=== PATIENT | male | born 1935 | race Caucasian/White ===

== ENCOUNTER 2018-02-02 12:26 | Outpatient (CLI) | payer MEDICARE, OTHER ==
[2018-02-04 15:22] LABS: ANA SCREEN NEGATIVE (NEGATIVE)
== END 2018-02-02 12:27 | disposition home or self-care (01) ==
LOC: LAB 12:26
PROVIDERS: ATTEND Physician Assistant Medical
DX: M06.9 Rheumatoid arthritis, unspecified (principal)
CPT/HCPCS: 36415; 81599; 86038; 86235

== ENCOUNTER 2018-11-10 23:01 | Emergency (ER) | payer MEDICARE, OTHER ==
[2018-11-11] MEDS ORDERED: TETANUS/DIPHTHERIA/PERTUSSIS 0.5 ML SYRINGE IM ONE (02:08)
[2018-11-11] MEDS ORDERED: BACITRACIN OINT TOP STA ×2 (02:56→04:06)
[2018-11-11] MEDS ORDERED: BACITRACIN OINT TOP ONE (02:59)
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
[2018-11-11 04:14] VITALS: BP 129/80
== END 2018-11-11 04:16 | disposition home or self-care (01) ==
LOC: ED 23:01
DX: S40.811A Abrasion of right upper arm, initial encounter (principal); W20.8XXA Other cause of strike by thrown, projected or falling object, initial encounter; Y93.89 Activity, other specified; Y92.009 Unspecified place in unspecified non-institutional (private) residence as the place of occurrence of the external cause
CPT/HCPCS: 90471; 99282; 99283

== ENCOUNTER 2020-04-18 07:46 | Outpatient (CLI) | payer MEDICARE, OTHER | END 2020-04-18 07:47 | disposition home or self-care (01) | LOC: DI 07:46 | PROVIDERS: ATTEND Internal Medicine | DX: I51.7 Cardiomegaly (principal); I77.810 Thoracic aortic ectasia | CPT/HCPCS: 93306 ==

== ENCOUNTER 2020-06-13 10:51 | Outpatient (CLI) | payer MEDICARE, OTHER | END 2020-06-13 10:52 | disposition home or self-care (01) | LOC: COV 10:51 | PROVIDERS: ATTEND Family Medicine | DX: Z11.59 Encounter for screening for other viral diseases (principal); Z20.828 Contact with and (suspected) exposure to other viral communicable diseases ==

== ENCOUNTER 2021-02-16 16:32 | Outpatient (CLI) | payer MEDICARE | END 2021-02-16 16:33 | disposition critical access hospital (66) | LOC: EMS 16:32 | PROVIDERS: ATTEND Emergency Medicine | DX: M54.5 Low back pain (principal); R07.89 Other chest pain | CPT/HCPCS: A0425; A0429 ==

== ENCOUNTER 2021-02-16 17:06 | Emergency (ER) | payer MEDICARE, OTHER ==
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
--- NOTE | 2021-02-16 18:37 | XRAY Report ---
PROCEDURE: Chest 2 View X-Ray INDICATIONS: fall TECHNIQUE: 2 view(s) of the chest. COMPARISON: None. FINDINGS: Surgical changes and devices: None. Lungs and pleura: No pleural effusions or pneumothorax. Linear right basilar opacities are present. Mediastinum: Mediastinal contours are normal. Heart size is normal. Bones and chest wall: No suspicious bony abnormalities. Soft tissues appear unremarkable. Ribs are poorly evaluated. There is an appearance of what appears to be old left rib fractures. IMPRESSION: Linear opacities within the right base suggestive atelectasis. Ribs are poorly evaluated on there appears to be old left rib fractures. If acute fractures are concern, rib series is recomme nded. Reviewed by: Ashia Martinez MD on 02/16/2021 6:35 PM PDT Approved by: Ashia Martinez MD on 02/16/2021 6:35 PM PDT Station ID: [id number]
--- NOTE | 2021-02-16 19:58 | CT Report ---
PROCEDURE: THORACIC SPINE WO INDICATIONS: fall; r/o fx TECHNIQUE: Noncontrast 3 mm thick sections acquired through the region of interest in the thoracic spine. Sagit darian and coronal reformats were then constructed. For radiation dose reduction, the following was used : automated exposure control, adjustment of mA and/or kV according to patient size. COMPARISON: X-ray lumbar spine 02/16/2021 FINDINGS: Image quality: Excellent. Bones: There is normal overall bony alignment. 61% compression deformity is present at T3. In addit ion, there is an approximate 64% compression deformity at L1. Multilevel degenerative changes are pre sent. No suspicious sclerotic or lytic bony lesions. Central spinal canal is of normal overall calib er. Soft tissues: No paravertebral masses or hematomas. Visualized posteromedial lungs appear clear. P artially visualized low-attenuation focus is present at the lateral aspect of the superior left renal pole suggestive of a large cyst. Similar smaller appearance is noted on the right kidney. Bilateral nonobstructing renal calculi are present. IMPRESSION: 1. 61% compression deformity at T3 as well 64% compression deformity at L1. No prior exams are availa ble for comparison. Fracture at T3 appears acute while the L1 compression deformity is somewhat more indeterminate in appearance regarding chronicity. Reviewed by: Ashia Martinez MD on 02/16/2021 7:57 PM PDT Approved by: Ashia Martinez MD on 02/16/2021 7:57 PM PDT Station ID: [id number]
--- NOTE | 2021-02-16 19:59 | CT Report ---
PROCEDURE: LUMBAR SPINE WO INDICATIONS: fall r/o fx TECHNIQUE: Noncontrast 3 mm thick sections acquired from the T12 level to the sacrum. Sagittal and coronal refo rmats were constructed. For radiation dose reduction, the following was used: automated exposure co ntrol, adjustment of mA and/or kV according to patient size. COMPARISON: CT thoracic spine 02/16/2021 FINDINGS: Image quality: Excellent. Bones: There is an approximate 64% compression deformity at L1. Multilevel degenerative changes are present. No suspicious sclerotic or lytic bony lesions. Central spinal canal is of normal overall ca liber. Soft tissues: No paravertebral masses or hematomas. Visualized posteromedial lungs appear clear. P artially visualized low-attenuation focus is present at the lateral aspect of the superior left renal pole suggestive of a large cyst. Similar smaller appearance is noted on the right kidney. Bilateral nonobstructing renal calculi are present. IMPRESSION: 1. 64% compression deformity at L1. No prior exams are available for comparison. L1 compression defor mity is somewhat indeterminate in appearance regarding chronicity. Given history of trauma, recommen d correlation to point tenderness as acute fracture cannot be definitively excluded. Reviewed by: Ashia Martinez MD on 02/16/2021 7:58 PM PDT Approved by: Ashia Martinez MD on 02/16/2021 7:58 PM PDT Station ID: [id number]
[2021-02-16] MEDS ORDERED: oxyCODONE 5 MG TABLET PO STA (20:12)
[2021-02-16 21:14] VITALS: BP 155/83
== END 2021-02-16 21:15 | disposition home or self-care (01) ==
LOC: EDUNIT# → ED 17:06 → SUPCPDRO 17:06 → ED 21:15
DX: S22.030A Wedge compression fracture of third thoracic vertebra, initial encounter for closed fracture (principal); S32.010A Wedge compression fracture of first lumbar vertebra, initial encounter for closed fracture; W01.0XXA Fall on same level from slipping, tripping and stumbling without subsequent striking against object, initial encounter; Y93.H9 Activity, other involving exterior property and land maintenance, building and construction; Y92.008 Other place in unspecified non-institutional (private) residence as the place of occurrence of the external cause
CPT/HCPCS: 71046; 72128; 72131; 99284; A9270

== ENCOUNTER 2021-04-30 08:00 | Outpatient (CLI) | payer MEDICARE ==
[2021-04-30 08:18] LABS: BASOPHILS # (AUTO) 0.1 10^3/uL (0.0-0.1); BASOPHILS % (AUTO) 0.8 %; EOSINOPHILS # (AUTO) 0.2 10^3/uL (0.0-0.7); EOSINOPHILS % (AUTO) 2.9 %; HCT - HEMATOCRIT 42.6 % (42.0-52.0); HGB - HEMOGLOBIN 13.9 g/dL (14.0-18.0); LYMPHOCYTES % (AUTO) 31.4 %; MEAN CORPUSCULAR HEMOGLOBIN 31.2 pg (27.0-31.0); MEAN CORPUSCULAR HGB CONC 32.6 g/dL (32.0-36.0); MEAN CORPUSCULAR VOLUME 95.5 fL (80.0-94.0); MEAN PLATELET VOLUME 9.7 fL (7.4-11.4); MONOCYTES # (AUTO) 0.6 10^3/uL (0.0-1.0); MONOCYTES % (AUTO) 9.3 %; NEUTROPHILS # (AUTO) 3.5 10^3/uL (1.5-6.6); NEUTROPHILS % (AUTO) 55.4 %; PLT - PLATELET COUNT 231 10^3/uL (130-450); RED BLOOD COUNT 4.46 10^6/uL (4.70-6.10); RED CELL DISTRIBUTION WIDTH 12.7 % (12.0-15.0); WHITE BLOOD COUNT 6.2 x10^3/uL (4.8-10.8)
[2021-04-30 08:32] LABS: ALBUMIN 3.9 g/dL (3.2-5.5); ALBUMIN/GLOBULIN RATIO 1.4 (1.0-2.2); BILIRUBIN,TOTAL 1.2 mg/dL (0.2-1.0); CALCIUM 9.4 mg/dL (8.5-10.3); POTASSIUM 3.8 mmol/L (3.5-5.0); TOTAL PROTEIN 6.6 g/dL (6.7-8.2)
[2021-04-30] MEDS ORDERED: GADOBUTROL 10 MMOL/10 ML VIAL ONE (08:58)
--- NOTE | 2021-04-30 11:04 | MRI Report ---
PROCEDURE: Brain W/WO INDICATIONS: PITUITARY ADENOMA CONTRAST: IV CONTRAST: Gadavist ml: 7.2 TECHNIQUE: Noncontrast axial T1 spin echo, axial T2 fast spin echo, sagittal and axial FLAIR, coronal T2 fast sp in echo, axial gradient echo, axial diffusion and ADC through the brain. After the administration of contrast, axial and coronal T1 spin echo with fat saturation through the brain. COMPARISON: None. FINDINGS: Sella and Pituitary Gland: The sella is slightly expanded and largely filled with the CSF but is oth erwise intact. There is a small 5 mm nub of pituitary tissue along the right posterior lateral sella , and the pituitary infundibulum is deviated to the right. There is no suprasellar mass present. No suprasellar mass lesion present. The cavernous sinuses enhance normally. Flow voids are noted in the cavernous segments of both internal carotid arteries. Brain and Meninges: Moderate cerebral and cerebellar atrophy and multifocal white matter chronic isc hemic change noted. The diffusion sequence is normal without evidence of acute infarct. Basal cister ns are clear. No evidence of dural or leptomeningeal thickening. No abnormal enhancement noted. Patel sceptibility weighted imaging shows no evidence of intracranial hemorrhage. Ventricles: Appropriate in size and position. No hydrocephalus. Skull Base: Visualized portions of the seventh and eighth cranial nerve complexes and internal cecilia tory canals are within normal limits. Craniovertebral relationships are normal. Clivus is fatty repla marta appropriately. Scalp and Calvarium: The scalp is unremarkable. Underlying calvarium has an appropriate marrow sign al. Paranasal Sinuses: Visualized sinuses are clear. Mastoids: Unremarkable as visualized. No mastoid effusion. Orbits: The orbits, globes and ocular muscles unremarkable. IMPRESSION: 1. Small 5 mm residual pituitary gland in the right posterior lateral sella probably reflects sequela e of medically treated adenoma. No evidence of sellar or suprasellar mass lesion. 2. Moderate atrophy and multifocal white matter chronic ischemic change 3. No prior exam currently available. An addendum report can be generated in the event a prior exam b ecomes available in the future. Reviewed by: Sal Hernandez MD on 04/30/2021 10:03 AM [place] Approved by: Sal Hernandez MD on 04/30/2021 10:03 AM [place] Station ID: [id number]
[2021-04-30] MEDS ORDERED: GADOBUTROL 10 MMOL/10 ML VIAL IVP ONE (15:35)
--- NOTE | 2021-04-30 15:41 | Ultrasound Report ---
PROCEDURE: Carotid Doppler Complete INDICATIONS: PITUITARY ADENOMA TECHNIQUE: Color and pulse Doppler interrogation was performed of both carotid systems, with image documentation and velocity measurements. COMPARISON: None. FINDINGS: Right side: Brachial blood pressure: 108/58 mm Hg. Common carotid artery peak systolic velocity: 94 cm/sec. Internal carotid artery peak systolic velocity: 110 cm/sec. Internal carotid artery end diastolic velocity: 25 cm/sec. External carotid artery peak systolic velocity: 78 cm/sec. ICA/CCA peak systolic ratio: 1.2 . Gore scale imaging description: Mild calcific plaque at the bifurcation Percent internal carotid artery stenosis: Less than 50% . Vertebral artery: Flow direction is antegrade. Left side: Brachial blood pressure: 107/58 mm Hg. Common carotid artery peak systolic velocity: 105 cm/sec. Internal carotid artery peak systolic velocity: 81 cm/sec. Internal carotid artery end diastolic velocity: 19 cm/sec. External carotid artery peak systolic velocity: 62 cm/sec. ICA/CCA peak systolic ratio: 0.8 . Gore scale imaging description: Mild calcific plaque at the bifurcation Percent internal carotid artery stenosis: Less than 50% . Vertebral artery: Flow direction is antegrade. IMPRESSION: 1. Less than 50% bilateral internal carotid artery stenosis. 2. Antegrade vertebral artery flow bilaterally. The estimate of stenosis included in the report of the imaging study was calculated using the NASCET method Reviewed by: Doreen Church MD on 04/30/2021 3:40 PM PDT Approved by: Doreen Church MD on 04/30/2021 3:40 PM PDT Station ID: [id number]
== END 2021-04-30 08:01 | disposition home or self-care (01) ==
LOC: LAB 08:00
PROVIDERS: ATTEND Internal Medicine
DX: H53.2 Diplopia (principal); Z86.011 Personal history of benign neoplasm of the brain
CPT/HCPCS: 36415; 70553; 80053; 85025; 85651; 93880; A9585

== ENCOUNTER 2022-11-22 12:52 | Outpatient (CLI) | payer MEDICARE ==
[~2022-11-22 12:52] MED LIST: GADOBUTROL 7.5 MMOL/7.5 ML VIAL ONE
[2022-11-22 13:13] LABS: CREATININE 1.1 mg/dL (0.6-1.2)
[2022-11-22] MEDS ORDERED: GADOBUTROL 7.5 MMOL/7.5 ML VIAL IVP ONE (15:51)
--- NOTE | 2022-11-22 16:45 | MRI Report ---
PROCEDURE: MRI brain with and without contrast INDICATIONS: Visual hallucination, pituitary adenoma, optic nerve tumor CONTRAST: GADAVIST 6.8 TECHNIQUE: Noncontrast axial T1 spin echo, axial T2 fast spin echo, sagittal and axial FLAIR, coronal T2 fast sp in echo, axial gradient echo, axial diffusion and ADC through the brain. After the administration of contrast, axial and coronal T1 spin echo with fat saturation through the brain. COMPARISON: 05/30/2021 FINDINGS: Image quality: Excellent. CSF spaces: Basal cisterns are patent. No extra-axial fluid collections. Ventricles are normal in size and shape. Brain: No midline shift. No intracranial bleeds or masses. No abnormal intracranial enhancement. There is cerebral volume loss for age. There is periventricular white matter chronic small vessel is chemic change. The brainstem appears normal. Diffusion-weighted images demonstrate no acute infarct . Normal intravascular flow voids are present. Slightly expanded sella is again noted, similar prior exam. The infundibulum is deviated to the right optic chiasm and visualized optic nerves are unremarkable Skull and face: Calvarial marrow is normal in signal. Orbits appear normal. Sinuses: Sinuses and mastoids appear clear. IMPRESSION: 1. No evidence of optic nerve tumor. No sellar or suprasellar mass lesion. 2. Sella is expanded with CSF, and the pituitary infundibulum is deviated to the right, likely sequel a of prior adenoma, unchanged from the prior exam 3. Moderate atrophy and white matter chronic ischemic change without intracranial hemorrhage or acute infarct Reviewed by: Sal Hernandez MD on 11/22/2022 3:44 PM [place] Approved by: Sal Hernandez MD on 11/22/2022 3:44 PM [place] Station ID: [id number]
== END 2022-11-22 12:53 | disposition home or self-care (01) ==
LOC: LAB 12:52
PROVIDERS: ATTEND Physician Assistant
DX: H53.19 Other subjective visual disturbances (principal); G31.89 Other specified degenerative diseases of nervous system; I67.82 Cerebral ischemia
CPT/HCPCS: 36415; 70553; 82565; A9585

== ENCOUNTER 2023-01-31 12:42 | Emergency (ER) | payer MEDICARE ==
--- NOTE | 2023-01-31 13:03 | ED Physician Documentation ---
PD HPI CHEST PAIN - Stated complaint Stated Complaint: CHEST DISCOMFORT/SOA - Chief complaint Chief Complaint: Cardiac - History obtained from History obtained from: Patient - History of Present Illness Timing - onset: How many hours ago (1) Timing - onset during: Light activity Timing - duration: Minutes Timing - details: Abrupt onset, Now resolved (Then had feeling of tingling in feet and some in hands. he had an episode of feeling lightheaded, with chest pressure and feling of dyspnea that lasted 5-10 minutes. Improved on sitting down and rest. Was just standing at home and not exerting at onset.) Quality: Tightness Location: Substernal Radiation: No: Neck, Back Improved by: Rest Worsened by: Other (he felt okay going to care and being driven here by . Just getting out of the car he felt lightheaded and near syncope without chest pain. felt better sitting.). No: Inspiration, Movement Similar symptoms before: No diagnosis (had an epsidoe of fainting last fall and seen in er without findings. Had Holter by PMD without abnormality.) Recently seen: Not recently seen Review of Systems Constitutional: denies: Fever, Chills Nose: denies: Rhinorrhea / runny nose, Congestion Throat: denies: Sore throat Cardiac: denies: Palpitations, Pedal edema, Calf pain Respiratory: denies: Cough GI: denies: Abdominal Pain, Vomiting, Diarrhea, Bloody / black stool Neurologic: reports: Numbness (in both feet.), Near syncope. denies: Focal weakness, Altered mental status, Headache PD PAST MEDICAL HISTORY - Past Medical History Cardiovascular: High cholesterol Endocrine/Autoimmune: HyPOthyroidism GI: GERD : Benign prostate hypertrophy - Past Surgical History Past Surgical History: Yes General: Colonoscopy Ortho: Shoulder arthroplasty, Arthroscopic surgery, Other HEENT: Other - Present Medications Home Medications: Ambulatory Orders Medication Instructions Recorded Confirmed Ascorbic Acid [Vitamin C] 1 tab PO DAILY 04/18/15 04/18/15 Cholecalciferol (Vitamin D3) 1 tab PO DAILY 04/18/15 11/11/18 [Vitamin D-3] Levothyroxine [Synthroid] 1 tab PO DAILY 04/18/15 11/11/18 Multivit with Calcium,Iron,Min 1 tab PO DAILY 04/18/15 11/11/18 [Essential Daily] Simvastatin 1 tab PO DAILY 04/18/15 11/11/18 Tamsulosin [Flomax] 1 cap PO DAILY 04/18/15 11/11/18 oxyCODONE [Roxicodone] 5 mg PO BID PRN #15 tablet 02/16/21 polyethylene glycoL 3350(BULK) 17 gm PO DAILY #238 gm 02/16/21 [Miralax] - Allergies Allergies/Adverse Reactions: Allergies Allergy/AdvReac Type Severity Reaction Status Date / Time No Known Drug Allergies Allergy Verified 01/31/23 12:53 - Social History Does the pt smoke?: No Smoking Status: Never smoker Does the pt drink ETOH?: No Does the pt have substance abuse?: No - Immunizations Immunizations are current?: No - POLST Patient has POLST: No PD ED PE NORMAL - Vitals Vital signs reviewed: Yes - General General: Alert and oriented X 3 (does have some short term memory deficit, which says is baseline for him now. ), No acute distress, Well developed/nourished - HEENT HEENT: Atraumatic - Neck Neck: Supple, no meningeal sign, No adenopathy - Cardiac Cardiac: No murmur. No: RRR (regular but midly bradycardic from 48-60.BP r emaines good with all the rates. ) - Respiratory Respiratory: No respiratory distress, Clear bilaterally - Abdomen Abdomen: Soft, Non tender - Derm Derm: Normal color, Warm and dry - Extremities Extremities: Normal ROM s pain, No edema, No calf tenderness / cord - Neuro Neuro: Alert and oriented X 3, No motor deficit, No sensory deficit, Normal speech Results - Vitals Vitals: Vital Signs - 24 hr 01/31/23 01/31/23 01/31/23 12:47 13:53 14:20 Temperature 36.4 C L Heart Rate 58 L 50 L 52 L Heart Rate [ Sitting] Heart Rate [ Standing] Heart Rate [ Supine] Respiratory 18 15 18 Rate Blood Pressure 163/84 H 148/76 H 148/76 H Blood Pressure [Sitting] Blood Pressure [Standing] Blood Pressure [Supine] O2 Saturation 99 99 100 01/31/23 01/31/23 01/31/23 15:00 15:25 15:30 Temperature Heart Rate 45 L 48 L Heart Rate [ 53 L Sitting] Heart Rate [ 74 Standing] Heart Rate [ 53 L Supine] Respiratory 17 13 Rate Blood Pressure 106/52 L 154/81 H Blood Pressure 144/88 H [Sitting] Blood Pressure 180/105 H [Standing] Blood Pressure 143/72 H [Supine] O2 Saturation 100 100 01/31/23 16:13 Temperature Heart Rate 51 L Heart Rate [ Sitting] Heart Rate [ Standing] Heart Rate [ Supine] Respiratory 16 Rate Blood Pressure 139/84 H Blood Pressure [Sitting] Blood Pressure [Standing] Blood Pressure [Supine] O2 Saturation 100 Oxygen O2 Source Room air - EKG (time done) 12:59 EKG releavant findings:: EKG personally interpreted by author of this note. Relevant findings are: Rate: Rate (enter#) (58) Rhythm: Sinus bradycardia Emerson: Normal Intervals: Normal [place] QRS: Normal Ischemia: Normal ST segments. No: ST elevation c/w ischemia, ST depression - Labs Labs: Laboratory Tests 01/31/23 01/31/23 01/31/23 13:24 13:24 13:24 WBC 8.6 RBC 4.61 L Hgb 14.1 Hct 42.6 MCV 92.4 MCH 30.6 MCHC 33.1 RDW 12.9 Plt Count 224 MPV 9.7 Neut # (Auto) 5.0 Lymph # (Auto) 2.5 Major # (Auto) 0.9 Eos # (Auto) 0.2 Baso # (Auto) 0.0 Absolute Nucleated RBC 0.00 Nucleated RBC % 0.0 Sodium 137 Potassium 3.9 Chloride 102 Carbon Dioxide 28 Anion Gap 7.0 BUN 20 Creatinine 1.0 Estimated GFR (MDRD) 71 L Glucose 78 Calcium 9.6 Magnesium 2.1 Total Bilirubin 0.7 AST 28 ALT 16 Alkaline Phosphatase 74 Troponin I High Sens B-Natriuretic Peptide 188 H Total Protein 6.4 L Albumin 3.8 Globulin 2.6 Albumin/Globulin Ratio 1.5 Lipase 40 01/31/23 01/31/23 13:24 14:20 WBC RBC Hgb Hct MCV MCH MCHC RDW Plt Count MPV Neut # (Auto) Lymph # (Auto) Major # (Auto) Eos # (Auto) Baso # (Auto) Absolute Nucleated RBC Nucleated RBC % Sodium Potassium Chloride Carbon Dioxide Anion Gap BUN Creatinine Estimated GFR (MDRD) Glucose Calcium Magnesium Total Bilirubin AST ALT Alkaline Phosphatase Troponin I High Sens 7.4 6.9 B-Natriuretic Peptide Total Protein Albumin Globulin Albumin/Globulin Ratio Lipase PD Medical Decision Making - ED course Complexity details: reviewed results, re-evaluated patient (His heart rate varied mild bradycardic. BP however was good with posturals after given iv fluids. Initial bp was fine but he still seemed to feel better after fluids. ), considered differential (had what sounds like near syncope. consider irregular heart rhythm, drop in bp, altered blood sugar or electrolytes. ), d/w patient, d/w family (his is here with him and helps with history as patient with memory deficits due to some dementia. ) Departure - Departure Disposition: 01 Home, Self Care Clinical Impression: Chest discomfort, Paresthesia of both lower extremities, Bradycardia Condition: Stable Record reviewed to determine appropriate education?: Yes Follow-Up: Arsen Álvarez MD [Primary Care Provider] - Comments: Your EKG, chest x-ray, blood tests are normal without any signs of acute abnormality. In particular no heart failure, heart attack, electrolyte abnormalities, pneumonia. Your symptoms may have been partly related to hydration. Be sure to take adequate fluids throughout the day. Your heart rate does go down slightly low to the upper 40s and 50s when you are resting. However your blood pressure still adequate. I do not believe this is part of your symptoms. Consideration would be intermittent abnormal heart rhythm or transient drop in blood pressure that occurred that led to your symptoms earlier. Neither of these seem to be the case right now. Follow-up with your primary care for recurrent episodes and return to the ER if needed. Discharge Date/Time: 01/31/23 16:21
[2023-01-31] MEDS ORDERED: SODIUM CHLORIDE 0.9% 1,000 ML IV STA (13:19)
[2023-01-31 13:31] LABS: BASOPHILS % (AUTO) 0.5 %; EOSINOPHILS # (AUTO) 0.2 10^3/uL (0.0-0.7); EOSINOPHILS % (AUTO) 1.9 %; HCT - HEMATOCRIT 42.6 % (42.0-52.0); HGB - HEMOGLOBIN 14.1 g/dL (14.0-18.0); LYMPHOCYTES # (AUTO) 2.5 10^3/uL (1.5-3.5); LYMPHOCYTES % (AUTO) 28.7 %; MEAN CORPUSCULAR HEMOGLOBIN 30.6 pg (27.0-31.0); MEAN CORPUSCULAR HGB CONC 33.1 g/dL (32.0-36.0); MEAN CORPUSCULAR VOLUME 92.4 fL (80.0-94.0); MEAN PLATELET VOLUME 9.7 fL (7.4-11.4); MONOCYTES # (AUTO) 0.9 10^3/uL (0.0-1.0); MONOCYTES % (AUTO) 10.3 %; NEUTROPHILS % (AUTO) 58.3 %; PLT - PLATELET COUNT 224 10^3/uL (130-450); RED BLOOD COUNT 4.61 10^6/uL (4.70-6.10); RED CELL DISTRIBUTION WIDTH 12.9 % (12.0-15.0); WHITE BLOOD COUNT 8.6 x10^3/uL (4.8-10.8)
[2023-01-31 13:44] LABS: ALBUMIN 3.8 g/dL (3.2-5.5); ALBUMIN/GLOBULIN RATIO 1.5 (1.0-2.2); BILIRUBIN,TOTAL 0.7 mg/dL (0.2-1.0); CALCIUM 9.6 mg/dL (8.5-10.3); MAGNESIUM 2.1 mg/dL (1.7-2.8); POTASSIUM 3.9 mmol/L (3.5-5.0); TOTAL PROTEIN 6.4 g/dL (6.7-8.2)
--- NOTE | 2023-01-31 13:48 | XRAY Report ---
PROCEDURE: Chest 1 View X-Ray INDICATIONS: Chest Pain TECHNIQUE: One view of the chest was acquired. COMPARISON: CXR 02/16/2021. FINDINGS: Surgical changes and devices: Right shoulder anchors. Lungs and pleura: No pleural effusions or pneumothorax. No consolidation. Minimal streaky opacity at the right lower lobe which is most consistent with scarring or atelectasis, unchanged. Mediastinum: Mediastinal contours appear normal. Heart size is normal. Bones and chest wall: No suspicious bony lesions. Prior left-sided rib fractures. Overlying soft ti ssues appear unremarkable. IMPRESSION: No acute cardiopulmonary abnormality. Reviewed by: Fadi Edwards MD on 01/31/2023 1:47 PM [facility] Approved by: Fadi Edwards MD on 01/31/2023 1:47 PM [facility] Station ID: [id number]
[2023-01-31] MEDS ORDERED: MAG HYDROX/AL HYDROX/SIMETH 30 ML UDC PO STA (14:14)
[2023-01-31 16:14] VITALS: BP 139/84
== END 2023-01-31 16:21 | disposition home or self-care (01) ==
LOC: ED 12:42
DX: R07.89 Other chest pain (principal); R20.2 Paresthesia of skin; R00.1 Bradycardia, unspecified
CPT/HCPCS: 36415; 71045; 80053; 83690; 83735; 83880; 84484; 85025; 93005; 96360; 96361; 99284; A9270

== ENCOUNTER 2023-02-26 07:00 | Outpatient (CLI) | payer MEDICARE ==
--- NOTE | 2023-02-26 19:59 | XRAY Report ---
PROCEDURE: Hand 3 View LT INDICATIONS: LEFT HAND PAIN TECHNIQUE: 3 views of the hand acquired. COMPARISON: None. FINDINGS: Bones: There is a mildly displaced comminuted intra-articular fracture of the fifth middle phalangea l base. There is mild volar angulation of the distal fracture fragment. Generalized osteopenia is see n. There are are mild to moderate scattered degenerative changes throughout the hand and wrist, most prominently at the second proximal interphalangeal joint. Soft tissues: No suspicious soft tissue calcifications or masses. IMPRESSION: Mildly displaced comminuted intra-articular fracture at the base of the fifth middle phalanx. Reviewed by: Jv Alvarez MD on 02/26/2023 7:57 PM PDT Approved by: Jv Alvarez MD on 02/26/2023 7:57 PM PDT Station ID: [id number]
== END 2023-02-26 23:59 | disposition home or self-care (01) ==
LOC: DI.S 07:00
PROVIDERS: ATTEND Nurse Practitioner
DX: S62.613A Displaced fracture of proximal phalanx of left middle finger, initial encounter for closed fracture (principal)

== ENCOUNTER 2023-03-13 20:02 | Outpatient (CLI) | payer MEDICARE | END 2023-03-13 23:59 | disposition EMS.NT | LOC: EMS 20:02 | DX: R11.2 Nausea with vomiting, unspecified (principal) ==

== ENCOUNTER 2023-10-24 14:29 | Outpatient (CLI) | payer MEDICARE ==
--- NOTE | 2023-10-24 21:11 | XRAY Report ---
PROCEDURE: Lumbar Spine 2 View INDICATIONS: LUMBAR BACK PAIN/RIGHT SIDED SCIATICA TECHNIQUE: 3 views of the lumbar spine were acquired. COMPARISON: CT lumbar spine 02/16/2021. FINDINGS: Bones: 5 [id number] vertebrae are present. Generalized osteopenia. Mild dextroconvex curvature . Grade 1 anterolisthesis of L4 on L5. Chronic L1 compression fracture does not appear significantly changed when compared to the CT from 02/16/2021. Moderate multilevel degenerative changes. Degenerativ e changes are seen in the sacroiliac joints. No suspicious bony lesions. Soft tissues: Overlying bowel gas pattern is normal. Aortic atherosclerotic calcifications are prese nt. IMPRESSION: 1.Chronic L1 compression fracture. 2.Moderate multilevel spondylosis. Reviewed by: Jv Alvarez MD on 10/24/2023 9:09 PM PST Approved by: Jv Alvarez MD on 10/24/2023 9:09 PM PST Station ID: [id number]
== END 2023-10-24 23:59 | disposition home or self-care (01) ==
LOC: DI.S 14:29
PROVIDERS: ATTEND Registered Nurse
DX: M54.31 Sciatica, right side (principal); M48.56XD Collapsed vertebra, not elsewhere classified, lumbar region, subsequent encounter for fracture with routine healing; M47.816 Spondylosis without myelopathy or radiculopathy, lumbar region

== ENCOUNTER 2024-01-05 09:31 | Outpatient (CLI) | payer MEDICARE ==
--- NOTE | 2024-01-05 16:55 | CT Report ---
PROCEDURE: Abdomen/Pelvis WO INDICATIONS: HEMATURIA TECHNIQUE: A CT scan of the abdomen and pelvis was performed without the use of intravenous contrast. Images we re recorded and evaluated at appropriate window settings. Reformats: coronal and sagittal. For radiat ion dose reduction, the following was used: automated exposure control, adjustment of mA and/or kV ac cording to patient size. COMPARISON: Lumbar spine radiographs 10/24/2023. CT lumbar spine 02/16/2021. FINDINGS: Image quality: Diagnostic. Evaluation of the solid organs is limited without IV contrast. Lower chest: Small hiatal hernia. Liver: No contour-deforming mass. Gallbladder and biliary tree: Cholelithiasis without wall thickening. No biliary dilation. Spleen: No splenomegaly. Pancreas: No pancreatic ductal dilation. Adrenals: No adrenal nodule. Kidneys and ureters: No hydronephrosis. Possible punctate nonobstructing right kidney stone. Several small nonobstructing left kidney stones measuring approximately 3 mm. Large simple left renal cyst me asuring 10.8 cm. No renal cystic lesion which requires follow up. No solid mass. Stomach, bowel and peritoneum: No bowel distension. No pathologic free fluid. Diverticulosis. The kim endix is not identified. Lymph nodes: No central or retroperitoneal adenopathy. Vessels: No infrarenal aortic aneurysm. PELVIS Reproductive organs: Marked prostatomegaly. Bladder: Bladder wall appears mildly thickened accounting for decompressed status. No stone. Pelvic lymph nodes: No pelvic adenopathy by size criteria. Bones: No aggressive osseous abnormality. Bilateral hip DJD. L1 compression fracture is unchanged. L5 compression fracture unchanged compared to 10/24/2023. Other: Probable fat-containing right inguinal hernia. IMPRESSION: 1. No hydronephrosis. No obstructing kidney stone. 2. Multiple nonobstructing left kidney stones. Punctate nonobstructing right kidney stone. 3. Marked prostatomegaly. Question mild bladder wall thickening. 4. Diverticulosis. Reviewed by: Fadi Edwards MD on 01/05/2024 4:54 PM PST Approved by: Fadi Edwards MD on 01/05/2024 4:54 PM PST Station ID: [id number]
== END 2024-01-05 09:32 | disposition home or self-care (01) ==
LOC: DI 09:31
PROVIDERS: ATTEND Internal Medicine
DX: R31.9 Hematuria, unspecified (principal); N20.0 Calculus of kidney; N40.0 Benign prostatic hyperplasia without lower urinary tract symptoms; K57.90 Diverticulosis of intestine, part unspecified, without perforation or abscess without bleeding

== ENCOUNTER 2024-01-22 19:38 | Outpatient (CLI) | payer MEDICARE | END 2024-01-22 23:59 | disposition critical access hospital (66) | LOC: EMS 19:38 | DX: R07.9 Chest pain, unspecified (principal); R00.2 Palpitations; R00.0 Tachycardia, unspecified | CPT/HCPCS: A0425; A0429 ==

== ENCOUNTER 2024-01-22 20:18 | Emergency (ER) | payer MEDICARE ==
--- NOTE | 2024-01-22 20:29 | ED Physician Documentation ---
History of Present Illness - Stated complaint Stated Complaint: CHEST DISCOMFORT/NUMBNESS - Chief complaint Chief Complaint: Cardiac - History obtained from History obtained from: Patient, EMS - Additonal information Additional information: 88yM with pmh hypothyroidism, hld, otherwise healthy, p/w palpitations tonight and tremors/weakness prompting to check his HR with home monitor. she noted his HR was high and called ems. on arrival they determined patient was in NSR. Review of Systems Constitutional: denies: Fever, Chills Eyes: denies: Loss of vision Ears: denies: Ear pain Nose: denies: Rhinorrhea / runny nose Throat: denies: Sore throat Cardiac: reports: Palpitations. denies: Chest pain / pressure Respiratory: denies: Dyspnea, Cough GI: denies: Abdominal Pain, Nausea, Vomiting PD PAST MEDICAL HISTORY - Past Medical History Cardiovascular: High cholesterol Endocrine/Autoimmune: HyPOthyroidism GI: GERD : Benign prostate hypertrophy - Past Surgical History Past Surgical History: Yes General: Colonoscopy Ortho: Shoulder arthroplasty, Arthroscopic surgery, Other HEENT: Other - Present Medications Home Medications: Ambulatory Orders Medication Instructions Recorded Confirmed Ascorbic Acid [Vitamin C] 1 tab PO DAILY 04/18/15 04/18/15 Cholecalciferol (Vitamin D3) 1 tab PO DAILY 04/18/15 11/11/18 [Vitamin D-3] Levothyroxine [Synthroid] 1 tab PO DAILY 04/18/15 11/11/18 Multivit with Calcium,Iron,Min 1 tab PO DAILY 04/18/15 11/11/18 [Essential Daily] Simvastatin 1 tab PO DAILY 04/18/15 11/11/18 Tamsulosin [Flomax] 1 cap PO DAILY 04/18/15 11/11/18 oxyCODONE [Roxicodone] 5 mg PO BID PRN #15 tablet 02/16/21 polyethylene glycoL 3350(BULK) 17 gm PO DAILY #238 gm 02/16/21 [Miralax] - Allergies Allergies/Adverse Reactions: Allergies Allergy/AdvReac Type Severity Reaction Status Date / Time No Known Drug Allergies Allergy Verified 01/22/24 20:30 - Social History Does the pt smoke?: No Smoking Status: Never smoker Does the pt drink ETOH?: No Does the pt have substance abuse?: No - Immunizations Immunizations are current?: No - POLST Patient has POLST: No PD ED PE NORMAL - Vitals Vital signs reviewed: Yes - General General: Alert and oriented X 3, No acute distress, Well developed/nourished, Other (elderly appearing) - HEENT HEENT: Atraumatic, PERRL, EOMI - Neck Neck: Supple, no meningeal sign - Cardiac Cardiac: RRR - Respiratory Respiratory: No respiratory distress, Clear bilaterally - Abdomen Abdomen: Non tender, Non distended - Derm Derm: Normal color - Neuro Neuro: Alert and oriented X 3, information systems technician 2-12 intact Eye Opening: Spontaneous Motor: Obeys Commands Verbal: Oriented GCS Score: 15 Results - Vitals Vitals: Vital Signs - 24 hr 01/22/24 01/22/24 20:27 21:02 Temperature 36.3 C L Heart Rate 64 60 Respiratory 19 15 Rate Blood Pressure 168/96 H 141/99 H O2 Saturation 98 98 Oxygen O2 Source Room air - EKG (time done) 2023 EKG releavant findings:: EKG personally interpreted by author of this note. Relevant findings are: Rate: Rate (enter#) (67) Rhythm: NSR Intervals: Normal [place] QRS: Normal, LVH (by voltage) Ischemia: Normal ST segments - Labs Labs: Laboratory Tests 01/22/24 01/22/24 20:25 20:25 WBC 11.6 H RBC 4.57 L Hgb 13.9 L Hct 43.1 MCV 94.3 H MCH 30.4 MCHC 32.3 RDW 13.4 Plt Count 256 MPV 10.2 Neut # (Auto) 7.7 H Lymph # (Auto) 2.5 Mckean # (Auto) 1.1 H Eos # (Auto) 0.1 Baso # (Auto) 0.1 Absolute Nucleated RBC 0.00 Nucleated RBC % 0.0 Sodium 139 Potassium 4.5 Chloride 107 Carbon Dioxide 27 Anion Gap 5.0 L BUN 20 Creatinine 1.0 Estimated GFR (MDRD) 71 L Glucose 96 Calcium 9.6 Magnesium 2.1 Total Bilirubin 0.6 AST 28 ALT 14 Alkaline Phosphatase 91 Troponin I High Sens 7.7 Total Protein 6.7 Albumin 4.0 Globulin 2.7 Albumin/Globulin Ratio 1.5 Lipase 19 PD Medical Decision Making - ED course ED course: 88yM presents to the ED with palpitations this evening, now resolved. Patient requesting dinner on ed arrival. He has benign physical exam and normal ekg with exception of lvh and does have occasional pvcs on cardiac monitoring. cxr, cbc, abdominal panel, troponin ordered and were all benign with exception of mild nonspecific leukocytosis (wbc 11.6). repeat trop negative. plan to f/u outpatient with pcp for referral to cardiology. return precautions given. Departure - Departure Clinical Impression: Palpitations, Occasional tremors Condition: Stable Forms: PCP List
[2024-01-22 20:31] LABS: BASOPHILS # (AUTO) 0.1 10^3/uL (0.0-0.1); BASOPHILS % (AUTO) 0.4 %; EOSINOPHILS # (AUTO) 0.1 10^3/uL (0.0-0.7); EOSINOPHILS % (AUTO) 1.2 %; HCT - HEMATOCRIT 43.1 % (42.0-52.0); HGB - HEMOGLOBIN 13.9 g/dL (14.0-18.0); LYMPHOCYTES # (AUTO) 2.5 10^3/uL (1.5-3.5); MEAN CORPUSCULAR HEMOGLOBIN 30.4 pg (27.0-31.0); MEAN CORPUSCULAR HGB CONC 32.3 g/dL (32.0-36.0); MEAN CORPUSCULAR VOLUME 94.3 fL (80.0-94.0); MEAN PLATELET VOLUME 10.2 fL (7.4-11.4); MONOCYTES # (AUTO) 1.1 10^3/uL (0.0-1.0); MONOCYTES % (AUTO) 9.4 %; NEUTROPHILS # (AUTO) 7.7 10^3/uL (1.5-6.6); NEUTROPHILS % (AUTO) 66.5 %; PLT - PLATELET COUNT 256 10^3/uL (130-450); RED BLOOD COUNT 4.57 10^6/uL (4.70-6.10); RED CELL DISTRIBUTION WIDTH 13.4 % (12.0-15.0); WHITE BLOOD COUNT 11.6 x10^3/uL (4.8-10.8)
[2024-01-22 20:38] VITALS: O2SAT 98
[2024-01-22 20:46] LABS: MAGNESIUM 2.1 mg/dL (1.7-2.3)
[2024-01-22 20:47] LABS: ALBUMIN/GLOBULIN RATIO 1.5 (1.0-2.2); BILIRUBIN,TOTAL 0.6 mg/dL (0.2-1.0); CALCIUM 9.6 mg/dL (8.5-10.3); POTASSIUM 4.5 mmol/L (3.5-4.5); TOTAL PROTEIN 6.7 g/dL (6.4-8.9)
[2024-01-22 20:52] LABS: TROPONIN I HIGH SENSITIVITY 7.7 ng/L (2.3-19.7)
--- NOTE | 2024-01-22 21:03 | XRAY Report ---
PROCEDURE: Chest 1V INDICATIONS: Chest Pain TECHNIQUE: One view of the chest was acquired. COMPARISON: 01/31/2023. FINDINGS: Surgical changes and devices: None. Lungs and pleura: No pleural effusions or pneumothorax. Linear atelectasis versus scarring at the ri ght base, similar to prior. The lungs are otherwise clear. Mediastinum: Mediastinal contours appear normal. Heart size is mildly enlarged. Bones and chest wall: No suspicious bony lesions. Overlying soft tissues appear unremarkable. IMPRESSION: No acute cardiopulmonary process. Reviewed by: Shin Clay MD on 01/22/2024 9:02 PM PST Approved by: Shin Clay MD on 01/22/2024 9:02 PM PST Station ID: [id number]
[2024-01-22 22:20] VITALS: BP 117/69
== END 2024-01-22 22:17 | disposition home or self-care (01) ==
LOC: EDUNIT# → ED 20:18
DX: R00.2 Palpitations (principal); R25.1 Tremor, unspecified
CPT/HCPCS: 36415; 80053; 83690; 83735; 84484; 85025; 93005; 99283; 99284

== ENCOUNTER 2024-04-08 08:00 | Outpatient (CLI) | payer MEDICARE | END 2024-04-08 23:59 | disposition home or self-care (01) | LOC: LAB 08:00 | PROVIDERS: ATTEND Urology | DX: R31.9 Hematuria, unspecified (principal) | CPT/HCPCS: 87077; 87086; 87181 ==

== ENCOUNTER 2024-04-26 15:15 | Outpatient (CLI) | payer MEDICARE ==
--- NOTE | 2024-04-26 16:53 | XRAY Report ---
PROCEDURE: SI Joints 3+V INDICATIONS: LOW BACK PAIN TECHNIQUE: 3 views of the sacroiliac joints were acquired. COMPARISON: None. FINDINGS: Bones: Bones are osteopenic. No bony erosions or ankylosis. No suspicious bony lesions. No fracture s. Soft tissues: Overlying bowel gas pattern is normal. No suspicious soft tissue densities. IMPRESSION: No acute bony abnormality. No radiographic evidence of sacroiliitis. Reviewed by: Megha Wetzel MD on 04/26/2024 4:51 PM PDT Approved by: Megha Wetzel MD on 04/26/2024 4:51 PM PDT Station ID: [id number]
== END 2024-04-26 15:16 | disposition home or self-care (01) ==
LOC: DI 15:15
PROVIDERS: ATTEND Internal Medicine
DX: M54.50 Low back pain, unspecified (principal)

== ENCOUNTER 2024-07-07 11:26 | Outpatient (CLI) | payer MEDICARE ==
--- NOTE | 2024-07-07 18:55 | XRAY Report ---
Lumbar Spine 2-3V HISTORY: 89 years of age, LOW BACK PAIN TECHNIQUE: Lumbar Spine 2-3V COMPARISON: 10/24/2023. FINDINGS/IMPRESSION: Mild dextroscoliosis of the lumbar spine. Grade 1 anterolisthesis of L4 on L5. Moderate anterior comp ression fracture of L1, unchanged from prior exam. Mild inferior endplate fracture of L5, unchanged f rom prior exam as well. Multilevel, mild degenerative disc disease of the lumbar spine . Severe lower lumbar facet arthropathy. Severe atherosclerotic calcification of the abdominal aorta. Reviewed by: Ingrid Eric MD on 07/07/2024 6:54 PM PDT Approved by: Ingrid Eric MD on 07/07/2024 6:54 PM PDT Station ID: [id number]
== END 2024-07-07 11:27 | disposition home or self-care (01) ==
LOC: DI 11:26
PROVIDERS: ATTEND Internal Medicine
DX: M54.50 Low back pain, unspecified (principal); I70.0 Atherosclerosis of aorta